=== PATIENT | male | born 1965 | race Asian ===

== ENCOUNTER 2019-09-04 06:39 | Day surgery (SDC) | payer OTHER ==
[~2019-09-04] VITALS: Ht 180.3 cm; Wt 82.9 kg
[2019-09-04] MEDS ORDERED: CARV-39 PO (07:09)
[2019-09-04] MEDS ORDERED: LACTATED RINGERS 1,000 ML IV SCH (07:09)
[2019-09-04 07:18] VITALS: BP 151/94
[2019-09-04] MEDS ORDERED: LIDOCAINE-MPF 1%, 2ML INFIL ONE (07:30)
[2019-09-04] MEDS ORDERED: METHYLENE BLUE 10 MG/ML 10ML ONE (08:12)
[2019-09-04] MEDS ORDERED: PROPOFOL 10 MG/ML, 20ML ONE (08:19)
[2019-09-04] MEDS ORDERED: HALOPERIDOL 5 MG/ML IV PRN (08:30)
[2019-09-04] MEDS ORDERED: MEPERIDINE/PF 25MG/ML,1ML IVPush PRN (08:30)
[2019-09-04] MEDS ORDERED: FENTANYL PF 100 MCG/2ML IV PRN (08:30)
[2019-09-04] MEDS ORDERED: ONDANSETRON ODT 8 MG PO PRN (08:30)
[2019-09-04] MEDS ORDERED: hydrALAzine 20 MG/ML, 1ML IV PRN (08:30)
[2019-09-04] MEDS ORDERED: ACETAMINOPHEN 325 MG TABLET PO PRN (08:30)
[2019-09-04] MEDS ORDERED: PROMETHAZINE 12.5 MG SUPP PR PRN (08:30)
[2019-09-04] MEDS ORDERED: ONDANSETRON 2MG/ML, 2ML IV PRN (08:30)
[2019-09-04] MEDS ORDERED: LABETALOL 5MG/ML, 20ML IV PRN (08:30)
[2019-09-04] MEDS ORDERED: ALBUTEROL SULFATE 2.5 MG/3 ML NPPB PRN (08:30)
[2019-09-04] MEDS ORDERED: MIDAZOLAM 1 MG/ML, 2ML IV PRN (08:30)
[2019-09-04] MEDS ORDERED: HYDROmorphone 2 MG/ML, 1ML IVPush PRN (08:30)
[2019-09-04] MEDS ORDERED: DIAZEPAM 5 MG/ML, 2ML IVPush PRN (08:30)
[2019-09-04] MEDS ORDERED: OXYcodone 5 MG/5 ML ORAL.SOL UDC PO PRN (08:30)
[2019-09-04] MEDS ORDERED: EPHEDRINE 50 MG/ML, 1ML IVPush PRN (08:30)
[2019-09-04] MEDS ORDERED: PROMETHAZINE 25 MG/ML, 1ML IV PRN (08:30)
== END 2019-09-04 10:10 | disposition home or self-care (01) ==
LOC: OUT 06:39
PROVIDERS: ATTEND Internal Medicine Geriatric Medicine
DX: K31.89 Other diseases of stomach and duodenum (principal); K29.50 Unspecified chronic gastritis without bleeding
CPT/HCPCS: 43239; 88305; 88342; J2704; Q9968